=== PATIENT | female | born 1940 | race Hispanic/Latino ===

== ENCOUNTER 2016-07-21 13:57 | Emergency (ER) | payer MEDICARE ==
[~2016-07-21 13:57] MED LIST: ADRENALIN ONE; CORDARONE IV ONE; D50W (25GM) IV ONE; SODIUM BICARBONATE IV ONE
--- NOTE | 2016-07-21 18:04 | Emergency Department Report ---
ED CPR HPI - General Chief Complaint: Cardiac Arrest/CPR Stated Complaint: CARDIAC ARREST Time Seen by Provider: 07/21/16 14:00 Source: EMS Mode of arrival: Stretcher Limitations: Other (unconscious) - History of Present Illness Initial Comments: Patient seen immediately upon arrival at 13:49. Complaint: found unresponsive Onset/Timin (after the family left the room and came back) Place: home AED Applied by Bystander/Fly Worker: Yes Shock Advised: Yes Number of Shocks Delivered: 1 Initial Findings in the Field: PEA ROSC in the Field: No Associated Injuries: No Treatments Prior to Arrival: intubation, defribrillated shocks # (times one), epinephrine mgs # (3) - Related Data Home Medications Medication Instructions Recorded Confirmed Last Taken Cephalexin 500 mg PO 07/21/16 Unknown Citalopram [Celexa] 07/21/16 Unknown Diltiazem [CarDIZEM] 60 mg PO 07/21/16 Unknown Lisinopril [Zestril] 5 mg PO QDAY 07/21/16 07/21/16 Unknown Omeprazole 40 mg PO 07/21/16 Unknown levETIRAcetam [Keppra TAB] 500 mg PO BID 07/21/16 07/21/16 Unknown Allergies Allergy/AdvReac Type Severity Reaction Status Date / Time No Known Allergies Allergy Unverified 07/21/16 14:31 ED Review of Systems ROS: Stated complaint: CARDIAC ARREST Other details as noted in HPI Comment: Unobtainable due to pts medical conditions (patient unresponsive) ED Past Medical Hx - Past Medical History Hx Hypertension: Yes Hx Seizures: Yes Hx COPD: Yes - Medications Home Medications: Home Medications Medication Instructions Recorded Confirmed Last Taken Type Cephalexin 500 mg PO 07/21/16 Unknown History Citalopram [Celexa] 07/21/16 Unknown History Diltiazem [CarDIZEM] 60 mg PO 07/21/16 Unknown History Lisinopril [Zestril] 5 mg PO QDAY 07/21/16 07/21/16 Unknown History Omeprazole 40 mg PO 07/21/16 Unknown History levETIRAcetam [Keppra TAB] 500 mg PO BID 07/21/16 07/21/16 Unknown History ED Physical Exam - General Limitations: Other (patient intubated and unresponsive) General appearance: cachectic - Head Head exam: Present: atraumatic - Eye Eye exam: Present: other (pupils fixed and dilated) - ENT ENT exam: Present: other (intubated) - Neck Neck exam: Present: normal inspection - Respiratory Respiratory exam: Present: normal lung sounds bilaterally (with bagging) - Cardiovascular Cardiovascular Exam: Present: other (no heart sounds) - GI/Abdominal GI/Abdominal exam: Present: soft - Extremities Exam Extremities exam: Present: other (emaciated) - Neurological Exam Neurological exam: Present: other (comatose) - Skin Skin exam: Present: cyanosis ED Course - Reevaluation(s) Reevaluation #1: 07/21/16 ACLS was continued with no response and patient was pronounced at 1401 Critical care attestation.: If time is entered above; I have spent that time in minutes in the direct care of this critically ill patient, excluding procedure time. ED Disposition Clinical Impression: Cardiac arrest Disposition: Is pt being admited?: No Does the pt Need Aspirin: No Condition: Stable Time of Disposition: 14:10
== END 2016-07-21 18:00 ==
LOC: ED 13:57
DX: I46.9 Cardiac arrest, cause unspecified (principal); I10 Essential (primary) hypertension; R56.9 Unspecified convulsions; J44.9 Chronic obstructive pulmonary disease, unspecified
CPT/HCPCS: 92950; 99285; J0171; J0282